=== PATIENT | male | born 1970 | race Caucasian/White ===

== ENCOUNTER 2016-09-21 03:39 | Emergency (ER) | payer BC, OTHER ==
[2016-09-21] MEDS ORDERED: HYDROmorphone 2 MG/ML Syringe IM ONE (03:52)
[2016-09-21] MEDS ORDERED: Diazepam 2 MG Tab PO ONE (03:53)
--- NOTE | 2016-09-21 04:00 | EDM.PDOC ---
ED HPI GENERAL MEDICAL PROBLEM - General Chief Complaint: General Stated Complaint: NECK PAIN Time Seen by Provider: 09/21/16 03:44 - History of Present Illness INITIAL COMMENTS - FREE TEXT/NARRATIVE: HISTORY AND PHYSICAL: History of present illness: The patient is a 46-year-old male with a history of back problems in the past for which she sees a chiropractor monthly and presents with complaints of on and off neck pain for the last few months which was worse when he woke up yesterday morning. The patient denies any trauma and did not do any increased activities lifting and had no falls and says that yesterday morning he woke up with neck spasm on the left side and inability to turn his head to the left and he went to see the chiropractor who was not able to fully adjusted because of the spasm and inflammation. He did have acupuncture performed which helped a little bit and then he took a Flexeril did not seem to help. The patient denies any weakness or neurosensory changes in his arms and has no chest pain fever chills shortness of breath or any other systemic complaints. The patient points to the left side of his neck as the area of pain and not in the midline of the neck. He has no sore throat or swollen glands. Patient is able to lift and move his arms the discomfort but movement of the head at the neck and left is what bothers him the most. Patient said he went into a hot shower and that helped a lot. Review of systems: As per history of present illness and below otherwise all systems reviewed and negative. Past medical history: As per history of present illness and as reviewed below otherwise noncontributory. Surgical history: As per history of present illness and as reviewed below otherwise noncontributory. Social history: No reported history of drug or alcohol abuse. Family history: As per history of present illness and as reviewed below otherwise noncontributory. Physical exam: General: Older but well-nourished male who is nontoxic including the ER but visibly has great difficulty turning his head to the left due to discomfort. HEENT: Atraumatic, normocephalic, pupils reactive, negative for conjunctival pallor or scleral icterus, mucous membranes moist, throat clear, neck supple, nontender, trachea midline. No cervical adenopathy and no nuchal rigidity but there is reproducible tenderness and spasm on palpation of the paraspinal musculature on the left as well as the trapezius on the left. When I palpate the patient grimaces and says that that is exactly his area of pain. Lungs: Clear to auscultation, breath sounds equal bilaterally, chest nontender. Heart: S1S2, regular rate and rhythm no overt murmurs Abdomen: Soft, nondistended, nontender. NABS Genitourinary: Deferred. Rectal: Deferred. Extremities: Atraumatic, full range of motion without defects or deficits of the extremities negative for cords or calf pain. Neurovascular unremarkable. Neuro: Awake, alert, oriented. Cranial nerves II through XII unremarkable. Cerebellum unremarkable. Motor and sensory unremarkable throughout. Exam nonfocal. Back: There are no midline step-offs or defects of the thoracic or lumbar spine no posterior rib tenderness. There is muscular tenderness as described above in the neck and the upper back area Diagnostics: [] Therapeutics: Dilaudid Valium Impression: Acute left neck spasm Definitive disposition and diagnosis as appropriate pending reevaluation and review of above. - Related Data Allergies Allergy/AdvReac Type Severity Reaction Status Date / Time cephalexin monohydrate Allergy Chest Verified 09/21/16 03:50 [From Keflex] Tightness ciprofloxacin Allergy Chest Verified 09/21/16 03:50 Tightness Home Meds: Home Meds . [No Known Home Meds] 07/23/14 [History] Social & Family History - Tobacco Use Smoking Status *Q: Current Every Day Smoker Years of Tobacco use: 23 - Alcohol Use Days Per Week of Alcohol Use: 0 Number of Drinks Per Day: 1 Total Drinks Per Week: 0 - Recreational Drug Use Recreational Drug Use: No ED ROS GENERAL - Review of Systems Review Of Systems: ROS reveals no pertinent complaints other than HPI. ED EXAM, GENERAL - Physical Exam Exam: See Below (See dictation) Course - Orders/Labs/Meds Orders: Active Orders 24 hr Category Date Time Status Diazepam [Valium] Med 09/21/16 03:53 Once 2 mg PO ONETIME ONE HYDROmorphone [Dilaudid] Med 09/21/16 03:52 Once 1 mg IM ONETIME ONE Departure - Departure Time of Disposition: 03:59 Disposition: Home, Self-Care 01 Condition: good, fair Clinical Impression: Neck muscle spasm Forms: ED Department Discharge Additional Instructions: The following information is given to patients seen in the emergency department who are being discharged to home. This information is to outline your options for follow-up care. We provide all patients seen in our emergency department with a follow-up referral. The need for follow-up, as well as the timing and circumstances, are variable depending upon the specifics of your emergency department visit. If you don't have a primary care physician on staff, we will provide you with a referral. We always advise you to contact your personal physician following an emergency department visit to inform them of the circumstance of the visit and for follow-up with them and/or the need for any referrals to a consulting specialist. The emergency department will also refer you to a specialist when appropriate. This referral assures that you have the opportunity for followup care with a specialist. All of these measure are taken in an effort to provide you with optimal care, which includes your followup. Under all circumstances we always encourage you to contact your private physician who remains a resource for coordinating your care. When calling for followup care, please make the office aware that this follow-up is from your recent emergency room visit. If for any reason you are refused follow-up, please contact the [facility] emergency department at and ask to speak to the emergency department charge nurse. [address] [place] [address] [facility] Primary care- Internal Medicine and Family [address] [address] Please apply heat to area of neck pain and try to stretch and move the muscles to open them up. These use medication as prescribed and needed and please call and followup with your clinic provider for further care and evaluation of this treatment plan and further intervention as needed. Return to the ER as needed and as discussed. Expect the pain to slowly improve over the next few days to one week. - My Orders Last 24 Hours: My Active Orders 09/21/16 03:52 HYDROmorphone [Dilaudid] 1 mg IM ONETIME ONE 09/21/16 03:53 Diazepam [Valium] 2 mg PO ONETIME ONE - Assessment/Plan Last 24 Hours: My Active Orders 09/21/16 03:52 HYDROmorphone [Dilaudid] 1 mg IM ONETIME ONE 09/21/16 03:53 Diazepam [Valium] 2 mg PO ONETIME ONE
[2016-09-21 04:36] VITALS: BP 127/88
== END 2016-09-21 04:35 | disposition home or self-care (01) ==
LOC: MW.ED 03:39
DX: M62.838 Other muscle spasm (principal); F17.200 Nicotine dependence, unspecified, uncomplicated; Z88.1 Allergy status to other antibiotic agents
CPT/HCPCS: 96372; 99283; A9270; J1170; 99284

== ENCOUNTER 2017-09-13 13:04 | Emergency (ER) | payer OTHER ==
[2017-09-13 13:21] VITALS: BP 139/92
--- NOTE | 2017-09-13 13:30 | EDM.PDOC ---
ED HPI GENERAL MEDICAL PROBLEM - General Chief Complaint: Upper Extremity Injury/Pain Stated Complaint: LEFT THUMB SMASHED AT WORK Time Seen by Provider: 09/13/17 13:25 Source of Information: Reports: Patient History Limitations: Reports: No Limitations - History of Present Illness INITIAL COMMENTS - FREE TEXT/NARRATIVE: HISTORY AND PHYSICAL: History of present illness: [Patient comes to the emergency room complaining of left thumb pain. Was working under a vehicle, when a 100 lb metal object fell onto his L thumb. Complains of a throbbing pain. Has not taken any medication for his symptoms. ] Review of systems: As per history of present illness and below otherwise all systems reviewed and negative. Past medical history: As per history of present illness and as reviewed below otherwise noncontributory. Surgical history: As per history of present illness and as reviewed below otherwise noncontributory. Social history: No reported history of drug or alcohol abuse. Family history: As per history of present illness and as reviewed below otherwise noncontributory. Physical exam: HEENT: Atraumatic, normocephalic. Extremities: Bruising under the L thumbnail present at the base. Distal phalanx is swollen and mildly erythematous. Exquisitely tender w/ palpation. Neurovascular intact. Neuro: Awake, alert, oriented. Motor and sensory unremarkable throughout. Exam nonfocal. Diagnostics: [L thumb x-ray] Impression: [L distal tuft fracture subungal hematoma L thumb] Plan: [Dr. Vanessa Coombs is contacted, she recommends follow up with patient tomorrow , Monday or Monday. Sooner as needed. Trephination performed with battery operated cautery with blood return. Offered Toradol injection, which patient declines. Offered Rx for hydrocodone, which patient declined. Rx written for Clindamycin 300 mg #28 one 4 times a day 0 refills. Strict return precautions are reviewed. Patient is in agreement with today's plan. All questions are answered and concerns are addressed. ] Definitive disposition and diagnosis as appropriate pending reevaluation and review of above. left thumb Pain Score (Numeric/FACES): 8 - Related Data Allergies Allergy/AdvReac Type Severity Reaction Status Date / Time cephalexin monohydrate Allergy Chest Verified 09/13/17 13:16 [From Keflex] Tightness ciprofloxacin Allergy Chest Verified 09/13/17 13:16 Tightness Home Meds: Home Meds . [No Known Home Meds] 07/23/14 [History] Past Medical History - Past Health History Medical/Surgical History: Denies Medical/Surgical History - Infectious Disease History Infectious Disease History: Reports: None - Past Surgical History GI Surgical History: Reports: Appendectomy Musculoskeletal Surgical History: Reports: Other (See Below) Other Musculoskeletal Surgeries/Procedures:: knee surgery Social & Family History - Family History Family Medical History: Noncontributory - Tobacco Use Smoking Status *Q: Current Every Day Smoker Years of Tobacco use: 30 Packs/Tins Daily: 0.5 - Caffeine Use Caffeine Use: Reports: Coffee - Alcohol Use Days Per Week of Alcohol Use: 0 Number of Drinks Per Day: 1 Total Drinks Per Week: 0 - Recreational Drug Use Recreational Drug Use: No Review of Systems - Review of Systems Review Of Systems: ROS reveals no pertinent complaints other than HPI. ED EXAM, GENERAL - Physical Exam Exam: See Below Course - Vital Signs Last Recorded V/S: Last Vital Signs Temp 98.4 F 09/13/17 13:17 Pulse 87 09/13/17 13:17 Resp 18 09/13/17 13:17 BP 139/92 H 09/13/17 13:17 Pulse Ox 98 09/13/17 13:17 Departure - Departure Time of Disposition: 14:30 Disposition: Home, Self-Care 01 Clinical Impression: Closed fracture of tuft of distal phalanx of left thumb - Discharge Information Instructions: Finger Fracture Referrals: Rosita Qureshi NP [Primary Care Provider] - Forms: ED Department Discharge Additional Instructions: The following information is given to patients seen in the emergency department who are being discharged to home. This information is to outline your options for follow-up care. We provide all patients seen in our emergency department with a follow-up referral. The need for follow-up, as well as the timing and circumstances, are variable depending upon the specifics of your emergency department visit. If you don't have a primary care physician on staff, we will provide you with a referral. We always advise you to contact your personal physician following an emergency department visit to inform them of the circumstance of the visit and for follow-up with them and/or the need for any referrals to a consulting specialist. The emergency department will also refer you to a specialist when appropriate. This referral assures that you have the opportunity for follow-up care with a specialist. All of these measure are taken in an effort to provide you with optimal care, which includes your follow-up. Under all circumstances we always encourage you to contact your private physician who remains a resource for coordinating your care. When calling for follow-up care, please make the office aware that this follow-up is from your recent emergency room visit. If for any reason you are refused follow-up, please contact the [facility] emergency department at and asked to speak to the emergency department charge nurse. [facility] Specialty care- Plastic Surgery Professional Building [address] [place] [address], [address] [place] [address] Follow-up with the above listed clinic as instructed. If you do not hear from them by tomorrow please contact them to schedule. Take antibiotics as prescribed. Tylenol alternating with ibuprofen as needed for discomfort. Return to ER as needed as discussed.
--- NOTE | 2017-09-13 14:06 | CR ---
EXAMINATION: Left thumb HISTORY: Crush injury COMPARISON: None TECHNIQUE: 3 views FINDINGS/IMPRESSION: There is a nondisplaced fracture through the tuft of the distal first phalanx wi th overlying soft tissue swelling. Bone mineralization and joint spaces appear normal.
== END 2017-09-13 14:54 | disposition home or self-care (01) ==
LOC: MW.ED 13:04
DX: S60.112A Contusion of left thumb with damage to nail, initial encounter (principal); W20.8XXA Other cause of strike by thrown, projected or falling object, initial encounter; Y93.89 Activity, other specified
CPT/HCPCS: 11740; 73140-26-FA; 73140-FA; 99282; 99283

== ENCOUNTER 2019-08-01 08:28 | Emergency (ER) | payer OTHER ==
--- NOTE | 2019-08-01 10:06 | EDM.PDOC ---
ED HPI GENERAL MEDICAL PROBLEM - General Chief Complaint: Lower Extremity Injury/Pain Stated Complaint: SMASHED FOOT Time Seen by Provider: 08/01/19 09:59 Source of Information: Reports: Patient History Limitations: Reports: No Limitations - History of Present Illness INITIAL COMMENTS - FREE TEXT/NARRATIVE: HISTORY AND PHYSICAL: History of present illness: Patient is a 49-year-old male who presents to the ED today with concern of right foot injury that occurred shortly prior to arrival to the ED. Patient states that a coworker was on a skid-steer and patient went up to talk to him. Patient states that when he was up there talking on the coworker accidentally put into gear and ran over his right foot. Patient states he has been able to walk on the foot since but does have pain with doing so. Patient states he is up to date on tetanus. Patient denies any other symptoms or concerns. Patient denies fever, chills, chest pain, shortness of breath, or cough. Denies headache, neck stiff ness, change in vision, syncope, or near syncope. Denies nausea, vomiting, abdominal pain, diarrhea, constipation, or dysuria. Has not noted any blood in urine or stool. Patient has been eating and drinking appropriately. Review of systems: As per history of present illness and below otherwise all systems reviewed and negative. Past medical history: As per history of present illness and as reviewed below otherwise noncontributory. Surgical history: As per history of present illness and as reviewed below otherwise noncontributory. Social history: See social history for further information Family history: As per history of present illness and as reviewed below otherwise noncontributory. Physical exam: General: Patient is alert, oriented, and in no acute distress. Patient sitting comfortably on exam table. HEENT: Atraumatic, normocephalic, pupils equal and reactive bilaterally, negative for conjunctival pallor or scleral icterus, mucous membranes moist, TMs normal bilaterally, throat clear, neck supple, nontender, trachea midline. No drooling or trismus noted. No meningeal signs. No hot potato voice noted. Lungs: Clear to auscultation, breath sounds equal bilaterally, chest nontender. Heart: S1S2, regular rate and rhythm without overt murmur Abdomen: Soft, nondistended, nontender. Negative for masses or hepatosplenomegaly. Negative for costovertebral tenderness. Pelvis: Stable nontender. Genitourinary: Deferred. Rectal: Deferred. Skin: Intact, warm, dry. No lesions or rashes noted. Extremities: There is some superficial abrasions over the right lateral dorsum of the foot without bleeding, erythema, or edema. Patient does have full range of motion of complete right lower extremity with mild pain with range of motion of the right ankle. Dorsalis pedis and posterior tibial pulses are grossly intact of the right lower extremity with capillary refill less than 2 seconds. Otherwise, atraumatic, negative for cords or calf pain. Neurovascular unremarkable. Neuro: Awake, alert, oriented. Cranial nerves II through XII unremarkable. Cerebellum unremarkable. Motor and sensory unremarkable throughout. Exam nonfocal. Notes: Discussed importance for follow-up with a primary care provider. Voices understanding and is agreeable to plan of care. Denies any further questions or concerns at this time. Diagnostics: Foot XR, Tib/fib XR Therapeutics: Post op shoe placed by nursing staff Prescription: None Impression: Right foot injury Plan: 1. Rest, ice, elevate the affected extremity. You can apply ice 15 minutes on, 15 minutes off. 2. Tylenol and/or Ibuprofen as directed for pain management or discomfort. 3. Follow up with the primary care provider as discussed. Return to the ED as needed and as discussed. Definitive disposition and diagnosis as appropriate pending reevaluation and review of above. right ankle/foot Pain Score (Numeric/FACES): 7 - Related Data Allergies Allergy/AdvReac Type Severity Reaction Status Date / Time cephalexin monohydrate Allergy Chest Verified 08/01/19 08:33 [From Keflex] Tightness ciprofloxacin Allergy Chest Verified 08/01/19 08:33 Tightness Home Meds: Home Meds . [No Known Home Meds] 07/23/14 [History] Past Medical History - Past Health History Medical/Surgical History: Denies Medical/Surgical History - Infectious Disease History Infectious Disease History: Reports: Chicken Pox, Measles, Mumps - Past Surgical History HEENT Surgical History: Reports: Myringotomy w Tube(s) GI Surgical History: Reports: Appendectomy Musculoskeletal Surgical History: Reports: Other (See Below) Other Musculoskeletal Surgeries/Procedures:: L knee surgery Social & Family History - Family History Family Medical History: Noncontributory - Tobacco Use Smoking Status *Q: Current Every Day Smoker Years of Tobacco use: 30 Packs/Tins Daily: 0.5 - Caffeine Use Caffeine Use: Reports: Coffee - Recreational Drug Use Recreational Drug Use: No Review of Systems - Review of Systems Review Of Systems: Comprehensive ROS is negative, except as noted in HPI. ED EXAM, GENERAL - Physical Exam Exam: See Below (see dictation) Course - Vital Signs Last Recorded V/S: Last Vital Signs Temp 96.9 F 08/01/19 08:30 Pulse 71 08/01/19 08:30 Resp 18 08/01/19 08:30 BP 123/78 08/01/19 08:30 Pulse Ox 97 08/01/19 08:30 - Orders/Labs/Meds Orders: Active Orders 24 hr Category Date Time Status DME for Discharge [COMM] Stat Oth 08/01/19 11:08 Ordered Departure - Departure Time of Disposition: 11:09 Disposition: Home, Self-Care 01 Condition: Good Clinical Impression: Right foot injury Qualifiers: Encounter type: initial encounter Qualified Code(s): S99.921A - Unspecified injury of right foot, initial encounter - Discharge Information Referrals: PCP,None [Primary Care Provider] - Forms: ED Department Discharge Additional Instructions: The following information is given to patients seen in the emergency department who are being discharged to home. This information is to outline your options for follow-up care. We provide all patients seen in our emergency department with a follow-up referral. The need for follow-up, as well as the timing and circumstances, are variable depending upon the specifics of your emergency department visit. If you don't have a primary care physician on staff, we will provide you with a referral. We always advise you to contact your personal physician following an emergency department visit to inform them of the circumstance of the visit and for follow-up with them and/or the need for any referrals to a consulting specialist. The emergency department will also refer you to a specialist when appropriate. This referral assures that you have the opportunity for follow-up care with a specialist. All of these measure are taken in an effort to provide you with optimal care, which includes your follow-up. Under all circumstances we always encourage you to contact your private physician who remains a resource for coordinating your care. When calling for follow-up care, please make the office aware that this follow-up is from your recent emergency room visit. If for any reason you are refused follow-up, please contact the [facility] Emergency Department at and asked to speak to the emergency department charge nurse. [facility] Primary Care [address] [place] [address] [address] 1. Rest, ice, elevate the affected extremity. You can apply ice 15 minutes on, 15 minutes off. 2. Tylenol and/or Ibuprofen as directed for pain management or discomfort. 3. Follow up with the primary care provider as discussed. Return to the ED as needed and as discussed. Sepsis Event Note - Evaluation Sepsis Screening Result: No Definite Risk - Focused Exam Vital Signs: Vital Signs Temp Pulse Resp BP Pulse Ox 08/01/19 08:30 96.9 F 71 18 123/78 97 Date Exam was Performed: 08/01/19 Time Exam was Performed: 11:09 - My Orders Last 24 Hours: My Active Orders 08/01/19 11:08 DME for Discharge [COMM] Stat - Assessment/Plan Last 24 Hours: My Active Orders 08/01/19 11:08 DME for Discharge [COMM] Stat
--- NOTE | 2019-08-01 10:50 | CR ---
Addendum: There is a lucent line within the base of the third metatarsal. This is possibly but not definitely a fracture. If patient is symptomatic to the midfoot, foot CT is recommended to further evaluate. This finding and recommendation was not mentioned on the original report. --- Addendum1 above dictated on [08/08/2019 10:00] by [Rocio Costa, Angel Lucas] --- --- Addendum1 above signed on [08/08/2019 10:01] by [Rocio Costa, Angel Lucas] --- --- Original report below dictated on [08/01/2019 09:39] by [Rocio Costa, Angel Lucas] --- --- Original report below signed on [08/01/2019 09:40] by [Rocio Costa, Angel White.] --- Right foot: 2 views of the right foot were obtained. Comparison: No previous study. Well corticated bony density off the inferior fibula which appears old. No acute fracture or other abnormality is appreciated. Impression: 1. Nothing acute is appreciated on 2 view right foot exam. Diagnostic code #2 This report was dictated in [place] Standard Time --- Addendum1 signed ---
--- NOTE | 2019-08-01 11:01 | CR ---
Right tibia and fibula: AP and lateral views of the right tibia and fibula were obtained. Comparison: No previous tibia or fibula study. No fracture or other bony abnormality is identified. Impression: 1. No abnormality is appreciated on 2 view right tibia and fibula study. Diagnostic code #1
[2019-08-01 12:26] VITALS: BP 154/87; PULSE 57
== END 2019-08-01 11:46 | disposition home or self-care (01) ==
LOC: MW.ED 08:28
DX: S90.811A Abrasion, right foot, initial encounter (principal); F17.210 Nicotine dependence, cigarettes, uncomplicated; Z88.1 Allergy status to other antibiotic agents; W31.83XA Contact with special construction vehicle in stationary use, initial encounter; Y93.89 Activity, other specified; Y99.0 Civilian activity done for income or pay; Y92.89 Other specified places as the place of occurrence of the external cause
CPT/HCPCS: 73590-26-RT; 73590-RT; 73620-26-RT; 73620-RT; 99283; 99283-25

== ENCOUNTER 2019-10-27 13:44 | Emergency (ER) | payer OTHER ==
[2019-10-27 14:18] VITALS: BP 144/90; PULSE 78
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
--- NOTE | 2019-10-27 15:33 | CR ---
HISTORY: Right shoulder pain. COMPARISON: None. FINDINGS: Three views of the right shoulder. The glenohumeral and subacromial joint spaces are preserved. There is mild spurring at the acromioclavicular joint. No evidence for acute fracture or dislocation. Dictated by Eufemia Hall MD @ Oct 27 2019 3:32PM Signed by Dr. Eufemia Hall @ Oct 27 2019 3:32PM
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
[2019-10-27] MEDS: Bacitracin Oint 1 GM U/D Packet ONE ×2 (16:10→16:12)
[2019-10-27] MEDS ORDERED: Bacitracin Oint 1 GM U/D Packet TOP ONE (16:11)
== END 2019-10-27 16:16 | disposition home or self-care (01) ==
LOC: MW.ED 13:44
DX: S40.011A Contusion of right shoulder, initial encounter (principal); S50.01XA Contusion of right elbow, initial encounter; S70.211A Abrasion, right hip, initial encounter; Z88.1 Allergy status to other antibiotic agents; V22.4XXA Motorcycle driver injured in collision with two- or three-wheeled motor vehicle in traffic accident, initial encounter
CPT/HCPCS: 73030-26-RT; 73030-RT; 73060-26-RT; 73060-RT; 73070-26-RT; 73070-RT; 99282; 99284-25

== ENCOUNTER 2021-06-21 07:37 | Emergency (ER) | payer OTHER ==
--- NOTE | 2021-06-21 07:49 | EDM.PDOC ---
ED HPI GENERAL MEDICAL PROBLEM - General Chief Complaint: Upper Extremity Injury/Pain Stated Complaint: INJURY RIGHT HAND Time Seen by Provider: 06/21/21 07:45 - History of Present Illness INITIAL COMMENTS - FREE TEXT/NARRATIVE: History of present illness: [] This healthy 50-year-old male was at work. 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 When he pulled back he smashed his base of his right thenar eminence of his thumb on another piece of machinery. He has significant pain since it is worse to touch it and move it. It is sharp and moderately severe. He has no obvious deformity and no neurologic deficit. Patient takes no medicine enjoys good health. Review of systems: As per history of present illness and below otherwise all systems reviewed and negative. Past medical history: As per history of present illness and as reviewed below otherwise noncontributory. Surgical history: As per history of present illness and as reviewed below otherwise noncontributory. Social history: No reported history of drug or alcohol abuse. Family history: As per history of present illness and as reviewed below otherwise noncontributory. Physical exam: Constitutional - well developed, well-nourished and in no acute distress HEENT - normocephalic, no evidence of trauma - external nose and mouth normal - no mass in neck and no JVD - mucosae moist EYES - full EOM, PERRL, no icterus - no evidence of inflammation, injection, or drainage Respiratory - no respiratory distress, equal bilateral expansio Musculoskeletal there is tenderness at the base of the thenar eminence of the right thumb and the very proximal metacarpal #1 as well as the very distal radius at that site. There is no tenderness in the anatomic snuffbox. No gross deformity of long bones or joints - no tenderness, swelling or edema Neurologic - Alert and oriented times four - CN II-XII grossly intact - motor sensory and coordination symmetrically normal Psychiatric - appropriate mood and affect with normal thought content Hematologic - No petechiae or purpura - mucosa appropriate color and sclera not pale - normal nail bed color and refill Integument - no rash or evidence of trauma - normal turgor Diagnostics: [] Therapeutics: [] Impression: [] Plan: [] Definitive disposition and diagnosis as appropriate pending reevaluation and review of above. right hand Pain Score (Numeric/FACES): 7 - Related Data Allergies Allergy/AdvReac Type Severity Reaction Status Date / Time cephalexin monohydrate Allergy Chest Verified 06/21/21 07:39 [From Keflex] Tightness ciprofloxacin Allergy Chest Verified 06/21/21 07:39 Tightness Home Meds: Home Meds . [No Known Home Meds] 07/23/14 [History] Past Medical History - Past Health History Medical/Surgical History: Denies Medical/Surgical History - Infectious Disease History Infectious Disease History: Reports: None - Past Surgical History HEENT Surgical History: Reports: Myringotomy w Tube(s) GI Surgical History: Reports: Appendectomy Musculoskeletal Surgical History: Reports: Other (See Below) Other Musculoskeletal Surgeries/Procedures:: knee surgery Social & Family History - Family History Family Medical History: No Pertinent Family History - Caffeine Use Caffeine Use: Reports: Coffee - Recreational Drug Use Recreational Drug Use: No Review of Systems - Review of Systems Review Of Systems: Comprehensive ROS is negative, except as noted in HPI. ED EXAM, GENERAL - Physical Exam Exam: See Below Free Text/Narrative:: My physical exam is in the HPI Course - Vital Signs Last Recorded V/S: Last Vital Signs Temp 36.5 C 06/21/21 07:40 Pulse 82 06/21/21 07:40 Resp 16 06/21/21 07:40 BP 155/83 H 06/21/21 07:40 Pulse Ox 97 06/21/21 07:40 - Orders/Labs/Meds Orders: Active Orders 24 hr Category Date Time Status DME for Discharge [COMM] Stat Oth 06/21/21 08:19 Ordered - Re-Assessments/Exams Free Text/Narrative Re-Assessment/Exam: 06/21/21 08:19 X-ray is negative. There is DJD only. Splint given for comfort and to preserve ligamentous integrity. Will need it for more than 14 days apparently. Plan follow-up with Ortho or primary care. 06/21/21 08:23 Neurovascular integrity of the distal right upper extremity verified after appli cation of the splint Departure - Departure Time of Disposition: 08:30 Disposition: Home, Self-Care 01 Condition: Good Clinical Impression: Contusion of right hand, initial encounter - Discharge Information Forms: ED Department Discharge Additional Instructions: Ice and elevate Return if there is numbness pale color or pain in the distal part of the thumb and fingers. [facility] [address] [place] [address] [facility] [address] [place] [id number] The following information is given to patients seen in the emergency department who are being discharged to home. This information is to outline your options for follow-up care. We provide all patients seen in our emergency department with a follow-up referral. The need for follow-up, as well as the timing and circumstances, are variable depending upon the specifics of your emergency department visit. If you don't have a primary care physician on staff, we will provide you with a referral. We always advise you to contact your personal physician following an e mergency department visit to inform them of the circumstance of the visit and for follow-up with them and/or the need for any referrals to a consulting specialist. The emergency department will also refer you to a specialist when appropriate. This referral assures that you have the opportunity for follow-up care with a specialist. All of these measure are taken in an effort to provide you with op timal care, which includes your follow-up. Under all circumstances we always encourage you to contact your private physician who remains a resource for coordinating your care. When calling for follow-up care, please make the office aware that this follow-up is from your recent emergency room visit. If for any reason you are refused follow-up, please contact the [facility] Emergency Department at and asked to speak to the emergency department charge nurse. Sepsis Event Note (ED) - Evaluation Sepsis Screening Result: No Definite Risk - Focused Exam Vital Signs: Vital Signs Temp Pulse Resp BP Pulse Ox 06/21/21 07:40 36.5 C 82 16 155/83 H 97 - My Orders Last 24 Hours: My Active Orders 06/21/21 08:19 DME for Discharge [COMM] Stat - Assessment/Plan Last 24 Hours: My Active Orders 06/21/21 08:19 DME for Discharge [COMM] Stat
--- NOTE | 2021-06-21 08:16 | CR ---
Indication: Injury, smashed hand Comparison: None available. Technique: AP, Lateral, and Oblique views right hand were obtained Findings: There is no displaced fracture or dislocation. There is mild degenerative change of the interphalangeal joints. The soft tissues are unremarkable. Impression: Mild degenerative changes of the interphalangeal joints without evidence of displaced fracture. Dictated by Rudi Saravia MD @ 06/21/2021 8:14:23 AM (Electronically Signed)
[2021-06-21 09:51] VITALS: BP 122/93; PULSE 62
== END 2021-06-21 08:37 | disposition home or self-care (01) ==
LOC: MW.ED 07:37
DX: S60.221A Contusion of right hand, initial encounter (principal); Z88.1 Allergy status to other antibiotic agents; W23.0XXA Caught, crushed, jammed, or pinched between moving objects, initial encounter
CPT/HCPCS: 29125; 73130-26-RT; 73130-RT; 99283-25

== ENCOUNTER 2021-08-31 23:46 | Emergency (ER) | payer OTHER, MEDICAID ==
[2021-09-01] MEDS ORDERED: Ketorolac 30 MG/ML SDV IVPUSH ONE (00:23)
[2021-09-01] MEDS ORDERED: Lactated Ringers 1,000 ML IV STA (00:23)
[2021-09-01 01:42] LABS: BLOOD UREA NITROGEN,BUN 16 mg/dL (7.0-18.0); CARBON DIOXIDE,CO2 22.8 mmol/L (21.0-32.0); CHLORIDE,CL 102 mmol/L (98-107); GLUCOSE RANDOM 143 mg/dL (74-106); POTASSIUM,K 3.7 mmol/L (3.5-5.1); SODIUM,NA 136 mmol/L (136-148)
[2021-09-01 02:20] VITALS: BP 109/81; PULSE 58
== END 2021-09-01 02:20 | disposition home or self-care (01) ==
LOC: MW.ED 23:46
DX: S39.012A Strain of muscle, fascia and tendon of lower back, initial encounter (principal); Z88.1 Allergy status to other antibiotic agents
CPT/HCPCS: 36415; 74176; 80053; 81003; 85025; 96374; 99284; J1885; J7120

== ENCOUNTER 2021-11-13 23:50 | Emergency (ER) | payer OTHER, MEDICAID ==
[2021-11-13] MEDS ORDERED: Sodium Chloride 0.9% 10 ML Syringe FLUSH PRN (23:54)
[2021-11-13] MEDS ORDERED: Sodium Chloride 0.9% 2.5 ML Syringe FLUSH PRN (23:54)
[2021-11-14] MEDS ORDERED: Ketorolac 60 MG/2 ML SDV IM ONE (01:55)
[2021-11-14] MEDS ORDERED: Orphenadrine 60 MG/2 ML Inj IM ONE (01:55)
[2021-11-14] MEDS ORDERED: traMADol 50 MG Tab PO ONE (01:55)
[2021-11-14 02:07] LABS: CARBON DIOXIDE,CO2 21.4 mmol/L (21.0-32.0)
[2021-11-14 02:47] LABS: POTASSIUM,K 3.8 mmol/L (3.5-5.1)
[2021-11-14 03:06] VITALS: BP 117/67; PULSE 86
== END 2021-11-14 03:06 | disposition home or self-care (01) ==
LOC: MW.ED 23:50
DX: M62.838 Other muscle spasm (principal); M54.2 Cervicalgia; M25.511 Pain in right shoulder; M25.512 Pain in left shoulder; Z88.1 Allergy status to other antibiotic agents
CPT/HCPCS: 36415; 71045; 80053; 83735; 83880; 84484; 85025; 85379; 93005; 96372; 99284; A9270; J1885; J2360; 93010

== ENCOUNTER 2023-09-23 22:28 | Emergency (ER) | payer MEDICAID, OTHER ==
[2023-09-23 22:48] VITALS: BP 154/86
[2023-09-23] MEDS: Acetaminophen/HYDROcodone 325-5 MG Tab PO ONE (23:08)
[2023-09-23] MEDS: Ondansetron 4 MG Tab.DIS PO ONE (23:09)
[2023-09-23] MEDS: Lidocaine 1% 5 ML VIAL INJECT ONE (23:09)
[2023-09-24 01:15] VITALS: PULSE 80
== END 2023-09-24 01:14 | disposition home or self-care (01) ==
LOC: MW.ED 22:28
DX: S61.213A Laceration without foreign body of left middle finger without damage to nail, initial encounter (principal); S61.215A Laceration without foreign body of left ring finger without damage to nail, initial encounter; Z88.1 Allergy status to other antibiotic agents; W23.1XXA Caught, crushed, jammed, or pinched between stationary objects, initial encounter
CPT/HCPCS: 12002; 99282; A9270; 12001; 99283; J3490

== ENCOUNTER 2023-10-04 09:36 | Emergency (ER) | payer OTHER ==
[2023-10-04 10:20] VITALS: BP 154/89; PULSE 68
== END 2023-10-04 10:22 | disposition left against medical advice (07) ==
LOC: MW.ED 09:36
DX: S61.213D Laceration without foreign body of left middle finger without damage to nail, subsequent encounter (principal); X58.XXXD Exposure to other specified factors, subsequent encounter
CPT/HCPCS: 99281

== ENCOUNTER 2024-08-10 09:17 | Emergency (ER) | payer OTHER ==
[2024-08-10] MEDS ORDERED: Sodium Chloride 0.9% 2.5 ML Syringe FLUSH PRN ×2 (09:46→10:09)
[2024-08-10] MEDS ORDERED: Sodium Chloride 0.9% 10 ML Syringe FLUSH PRN ×2 (09:46→10:09)
[2024-08-10] MEDS: Sodium Chloride 0.9% 1,000 ML IV ONE ×2 (09:48→11:00)
[2024-08-10] MEDS ORDERED: Sodium Chloride 0.9% 20 ML SDV IV PRN (10:09)
[2024-08-10] MEDS: Ondansetron 4 MG/2 ML SDV IVPUSH ONE (10:17)
[2024-08-10 10:22] LABS: ALBUMIN 3.5 g/dL (3.4-5.0); BILIRUBIN TOTAL 0.7 mg/dL (0.2-1.0); CALCIUM 8.3 mg/dL (8.5-10.1); CARBON DIOXIDE,CO2 21.6 mmol/L (21.0-32.0); CREATININE 1.2 mg/dL (0.8-1.3); EST CRCL DRUG DOSING (CG) 74.08 mL/min; POTASSIUM,K 4.3 mmol/L (3.5-5.1); PROTEIN TOTAL,TP 6.9 g/dL (6.4-8.2)
[2024-08-10 10:26] LABS: BASOPHILS ABSOLUTE AUTO 0.05 K/uL (0.00-0.20); BASOPHILS PERCENT AUTO 0.6 % (0.0-1.0); EOSINOPHILS ABSOLUTE AUTO 0.12 K/uL (0.00-0.45); EOSINOPHILS PERCENT AUTO 1.4 % (0.0-6.0); HEMATOCRIT 43.1 % (42.0-52.0); HEMOGLOBIN 14.6 g/dL (14.0-18.0); IMMATURE GRAN ABSOLUTE AUTO 0.06 K/uL (0.00-0.05); IMMATURE GRAN PERCENT AUTO 0.7 % (0.0-0.4); LYMPHOCYTES ABSOLUTE AUTO 0.62 K/uL (1.00-4.80); MEAN CORPUSCULAR HEMOGLOBIN 32.2 pg (28.0-32.0); MEAN CORPUSCULAR HGB CONC 33.9 g/dL (32.0-36.0); MEAN CORPUSCULAR VOLUME 94.9 fL (83.0-99.0); MEAN PLATELET VOLUME 9.4 fL (9.4-12.4); MONOCYTES ABSOLUTE AUTO 0.42 K/uL (0.00-0.80); MONOCYTES PERCENT AUTO 4.7 % (0.0-8.0); NEUTROPHILS ABSOLUTE AUTO 7.58 K/uL (1.80-7.70); NEUTROPHILS PERCENT AUTO 85.6 % (41.0-71.0); PLATELET COUNT,PLT 249 K/uL (150-400); RED BLOOD CELL COUNT 4.54 M/uL (4.52-5.90); WHITE BLOOD CELL COUNT,WBC 8.85 K/uL (3.9-11.3)
[2024-08-10 10:42] LABS: MAGNESIUM 1.7 mg/dL (1.8-2.4)
[2024-08-10 10:47] LABS: APPEARANCE,URINE CLEAR; BILIRUBIN,URINE NEGATIVE (NEGATIVE); COLOR,URINE YELLOW; GLUCOSE,URINE NEGATIVE (NEGATIVE); KETONES,URINE NEGATIVE (NEGATIVE); LEUKOCYTE ESTERASE,URINE NEGATIVE (NEGATIVE); NITRITE,URINE NEGATIVE (NEGATIVE); OCCULT BLOOD,URINE NEGATIVE (NEGATIVE); PH,URINE 5.5 (5.0-8.0); PROTEIN,URINE NEGATIVE (NEGATIVE); UROBILINOGEN,URINE 0.2 EU/dL (<2.0)
[2024-08-10] MEDS: Magnesium Sulf/Wat 2 GM/50 mL 2 GM in Premix Bag 1 BAG IV ONE (11:41)
[2024-08-10] MEDS: Iopamidol 755 MG/ML 500 ML Multipack Bottle IVPUSH STA (11:51)
[2024-08-10 13:26] VITALS: BP 144/65
[2024-08-10] MEDS: Azithromycin 250 MG Tab PO ONE (13:28)
[2024-08-10] MEDS: Ketorolac 30 MG/ML SDV IVPUSH ONE (13:33)
[2024-08-10 14:20] VITALS: PULSE 77
== END 2024-08-10 14:20 | disposition home or self-care (01) ==
LOC: MW.ED 09:17
DX: K52.9 Noninfective gastroenteritis and colitis, unspecified (principal); Z88.1 Allergy status to other antibiotic agents
CPT/HCPCS: 36415; 74019; 74177; 80053; 81003; 83605; 83690; 83735; 85025; 87045; 87046; 87428; 87449; 87899; 96361; 96365; 96366; 96375; 99284; A9270; J1885; J2405; J3475; J7030; Q9967